=== PATIENT | male | born 1995 | race Caucasian/White ===

== ENCOUNTER 2021-01-02 17:03 | Emergency (ER) | payer OTHER ==
[~2021-01-02] VITALS: Ht 182.9 cm; Wt 136.4 kg
[2021-01-02 17:50] LABS: COLLECTION METHOD CLEAN CATCH
[2021-01-02 17:54] LABS: BASO # 0.1 (0.0-0.2); BASO % 0.7 % (0.0-2.0); EOS # 0.1 (0.0-0.7); EOS % 0.8 % (0-4.0); GRAN # 9.9 (1.4-6.5); HEMATOCRIT 45.6 % (42.0-52.0); HEMOGLOBIN 16.2 g/dl (13.5-18.0); LYMPH # 2.2 (1.2-3.4); LYMPH % 16.4 % (20.0-51.0); MEAN CELL VOLUME 93 fl (80.0-100.0); MEAN CORPUSCULAR HEMOGLOBIN 33 pg (27.0-31.0); MEAN CORPUSCULAR HGB CONC 36 g/dl (33.0-37.0); MEAN PLATELET VOLUME 10.3 fl (7.4-10.4); MONO # 1.2 (0.1-0.6); MONO % 8.7 % (1.7-9.3); PLATELET COUNT 286 K/mm3 (130-400); RED BLOOD COUNT 4.89 M/mm3 (4.20-5.60); REDCELL DISTRIBUTION WIDTH-CV 11.9 % (11.5-14.5)
[2021-01-02 17:58] LABS: MUCOUS Present /lpf; PH 5 (5-8); SQUAMOUS EPITHELIAL None Seen /hpf; URINE APPEARANCE Clear; URINE BACTERIA None Seen /hpf; URINE BILIRUBIN Negative (NEGATIVE); URINE BLOOD 3+ (NEGATIVE); URINE COLOR Yellow; URINE GLUCOSE Negative (NEGATIVE); URINE KETONE Negative (NEGATIVE); URINE LEUKOCYTE ESTERASE Negative (NEGATIVE); URINE NITRATE Negative (NEGATIVE); URINE PROTEIN(semi-quant) 1+ (NEGATIVE); URINE RBC >50 /hpf
[2021-01-02 18:03] LABS: ALBUMIN 4.4 gm/dL (3.5-5.0); CALCIUM 9.3 mg/dL (8.4-10.2); CREATININE, serum 0.99 (0.66-1.25); POTASSIUM 3.9 mmol/L (3.4-5.0); TOTAL PROTEIN 7.3 gm/dL (6.4-8.2)
[2021-01-02 19:27] VITALS: BP 166/92; PULSE 84; TEMP 96.9
== END 2021-01-02 19:29 | disposition home or self-care (01) ==
LOC: COL.ER 17:03
PROVIDERS: Nurse Practitioner
DX: N20.0 Calculus of kidney (principal)
CPT/HCPCS: J1170; J7030; Q9967